=== PATIENT | male | born 1960 | race Caucasian/White ===

== ENCOUNTER → 2016-07-15 | Outpatient (CLI) | payer OTHER, MEDICARE ==
[~2016-07-15] MED LIST: ASPIRIN LO-DOSE81 MG PO; ATIVAN 1 MG1 MG PO; DEPO TESTOS200 MG/ML IM; FISH OIL 1,0001 EACH PO; LYRICA 75MG CAP75 MG PO; MEDROL4 M1 PO; MS CONTIN30 MG PO; OXYCODONE HCL20 MG PO; OXYCONTIN40 MG PO; PRILOSEC20 MG PO; ROXICODONE 5MG (5 MG PO; WELLBUTRIN SR150 MG PO; ZANAFLEX4 MG PO
== END | disposition disaster alternative care site (69) ==
LOC: GRAD 14:00
DX: M54.5 Low back pain (principal); M51.36 Other intervertebral disc degeneration, lumbar region; M51.34 Other intervertebral disc degeneration, thoracic region; M47.814 Spondylosis without myelopathy or radiculopathy, thoracic region; M41.9 Scoliosis, unspecified

== ENCOUNTER 2016-07-25 13:07 | Emergency (ER) | payer OTHER, MEDICARE ==
--- NOTE | ~2016-07-25 | ER ---
[facility] AGE: 56 Y [address] ROOM: [place] [address] LOCATION: [facility] ADMIT DATE: 07/25/2016 ER/Outpatient Report DISCHARGE DATE: 07/25/2016 FAMILY PHYSICIAN: Karthik Yu MD ATTENDING PHYSICIAN: Blake Jiménez Time of Patient Arrival: 1307 hours. Time of Patient Evaluation: 1319 hours. CHIEF COMPLAINT: Back pain. HISTORY OF PRESENT ILLNESS: This is a 56-year-old male, who presents to the ER with acute on chronic back pain that started an hour prior to arrival. The patient states he has no new recent injury. He denies any bowel or bladder problems. No recent fever or chills. He states he does have surgery scheduled with Dr. Herrera on August 19. The patient states that he has been taking his morphine as scheduled, but he has not been taking his Percocet and he did not take any of that today. He states that usually they just give him a few shots and he can go home. He states he definitely does not want to be hospitalized for this pain today. ALLERGIES: NO KNOWN ALLERGIES. MEDICATIONS: Please see medication list in nurse's notes. PAST MEDICAL HISTORY: 1. Chronic back pain. 2. CT. 3. Cardiac stents x2. 4. Back surgery x2. SOCIAL HISTORY: Drinks alcohol occasionally. REVIEW OF SYSTEMS: A 10-point review of systems was completed and was negative with the exception of those discussed in the HPI. PHYSICAL EXAMINATION: VITAL SIGNS: Height 5 feet 7 inches stated, weight 103.8 kg taken, blood pressure is 147/78, pulse 78, respirations 18, temperature 97.7 degrees tympanically, and saturation is 97% on room air. Jessica Coma Score is 15. [facility] AGE[facility] 56 Y [address] ROOM: [place] [address] LOCATION: [facility] ADMIT DATE: 07/25/2016 ER/Outpatient Report DISCHARGE DATE: 07/25/2016 FAMILY PHYSICIAN: Karthik Yu MD ATTENDING PHYSICIAN: Blake Jiménez GENERAL: An alert, tearful 56-year-old in mild distress. HEENT: Head; normocephalic. Eyes; pupils are equal and reactive to light. Does display moist mucous membranes. LUNGS: Clear to auscultation bilaterally. No wheezes or crackles. Normal respiratory effort. HEART: Regular rate and rhythm. No lifts, thrills, or murmurs. ABDOMEN: Soft, it is nontender. He has good bowel sounds throughout. No masses are palpated. MUSCULOSKELETAL: He does have tenderness across his entire lumbar spine. He does have positive straight leg test bilaterally to his lower extremities secondary to pain. The patient has good pulses bilaterally to the lower extremities. LABORATORY DATA AND IMAGING STUDIES: Labs and X-rays: None were done. IMPRESSION: Acute on chronic back pain. ASSESSMENT AND PLAN: I did review the patient's chart. I will be giving patient Dilaudid 1 mg IM, Valium 10 mg IM, and Toradol 60 mg IM here in the ER. He did tolerate this well. He would like to go home at this time. I advised him to ice, rest, monitor symptoms, and follow up with his primary care physician or Dr. Herrera for followup care. The patient understands and agrees with care. CANDE GARIBAY PA-C FOR MD ZENOBIA COOPER/shashi /[id number] d: 07/25/16 2305 t: 08/10/16 0802, OUTPATIENT REPORT
== END 2016-07-25 13:51 | disposition disaster alternative care site (69) ==
LOC: GMED 13:07
DX: G89.29 Other chronic pain (principal); M54.5 Low back pain; I25.2 Old myocardial infarction; Z98.61 Coronary angioplasty status; Z98.890 Other specified postprocedural states
CPT/HCPCS: J1170; J1885; J3360

== ENCOUNTER 2016-10-31 13:54 | Emergency (ER) | payer MEDICARE ==
--- NOTE | ~2016-10-31 | ER ---
PATIENT'S NAME: [facility] AGE: 56 Y [address] ROOM: [place] [address] LOCATION: [facility] ADMIT DATE: 10/31/2016 ER/Outpatient Report DISCHARGE DATE: 10/31/2016 FAMILY PHYSICIAN: Karthik Yu MD ATTENDING PHYSICIAN: Jack Conde Time of Arrival: 1358 hours. Time of Exam: 1415 hours. CHIEF COMPLAINT: Pain and redness, lower extremities. HISTORY OF PRESENT ILLNESS: The patient is a 56-year-old male who presents to the emergency department today with a chief complaint of pain and redness to his lower extremities. He reports this started about 12 hours prior to arrival. He reports sharp pain, burning type pain, it is currently 8/10 in severity. Denies any fevers or chills. No nausea or vomiting. No diarrhea or constipation. He reports that this started to feel like they were on fire last night. He denies any new exposures. No new detergents. No other exposures other than the patient has been in a swimming pool that is untreated. No chest pain, no shortness of breath. PAST MEDICAL HISTORY: Coronary artery disease, depression, anxiety, and chronic pain. PAST SURGICAL HISTORY: Back surgery, stents, finger, hand, nose, and tumor. SOCIAL HISTORY: The patient denies any tobacco use. Reports occasional alcohol use. Denies any illicit drug use. ALLERGIES: NO KNOWN DRUG ALLERGIES. MEDICATIONS: Please see list. PRIMARY CARE DOCTOR: Karthik Yu MD. ORTHOPEDICS: Junior Herrera MD. PATIENT'S NAME: [facility] AGE: 56 Y [address] ROOM: [place] [address] LOCATION: [facility] ADMIT DATE: 10/31/2016 ER/Outpatient Report DISCHARGE DATE: 10/31/2016 FAMILY PHYSICIAN: Karthik Yu MD ATTENDING PHYSICIAN: Jack Conde PAIN MANAGEMENT: Manolo Frost MD. REVIEW OF SYSTEMS: All systems are reviewed by myself and are negative with the exception of those discussed in HPI and past medical history. PHYSICAL EXAMINATION: VITAL SIGNS: Weight 103.1 kg. Blood pressure 176/86, pulse 76, respiratory rate 18, temperature 96.3, and oxygen saturation 96% on room air. GENERAL: The patient is a 56-year-old male who appears the stated age, in no acute distress. HEENT: Head: Normocephalic, atraumatic. Pupils are equal, round, and reactive to light. Oropharynx is clear. NECK: Supple. There is no nuchal rigidity. CARDIOVASCULAR: Regular rate and rhythm. No murmurs, rubs, or gallops. LUNGS: Clear to auscultation bilaterally. No wheezes, rales, or rhonchi. ABDOMEN: Soft, nontender, and nondistended. No rebound, rigidity, or guarding. MUSCULOSKELETAL: The patient is in a TLSO brace. SKIN: The patient does have some mild erythema in the lower extremities. He does have 1+ pretibial edema in bilateral lower extremities. They are equal bilaterally with tenderness to palpation. LAB AND X-RAYS: CBC is normal. CMP is normal. IMPRESSION: 1. Bilateral lower extremity rash and swelling. 2. Initial visit. ED COURSE: The patient was brought back to the examination room. Seen and evaluated by myself. Laboratory analysis and imaging are obtained as described above. An IV is established. The patient is given Solu-Medrol 125 mg IV, Pepcid 20 mg IV, as well as Benadryl 50 mg IV. He is given 4 mg of morphine IV. I have discussed the results with the patient and his who is at bedside. I see no evidence of petechiae or purpuric lesions. There is no evidence of lesions on the palms or soles. I do feel the patient is safe for outpatient evaluation at this time. I have written a prescription for prednisone for home and also cover for potential cellulitis as the patient does have an abrasion noted on bilateral lower extremities, worse on the left. I have also recommended [id number] Benadryl. I have discussed return to care instructions including worsening symptoms or any other concerns to return to the emergency department as soon as possible. I have asked he follows up with PATIENT'S NAME: TER[facility]A YIP [facility] AGE: 56 Y [address] ROOM: [place] [address] LOCATION: [facility] ADMIT DATE: 10/31/2016 ER/Outpatient Report DISCHARGE DATE: 10/31/2016 FAMILY PHYSICIAN: Karthik Yu MD ATTENDING PHYSICIAN: Jack Conde Dr. in 2-3 days for re-evaluation. The patient is agreeable, is agreeable, and they are without further questions at this time. DISPOSITION: The patient is discharged home in good condition. DO DARLENE CHATTERJEE/modl /[id number] d: 10/31/16 2142 t: 11/10/16 0650, OUTPATIENT REPORT
[2016-10-31 14:56] LABS: BASOPHIL # 0.1 K/uL (0.0-0.2); BASOPHIL % 0.9 %; EOSINOPHIL # 0.2 K/uL (0.0-0.5); EOSINOPHIL % 3.7 %; HEMATOCRIT 40.5 % (37.0-53.0); HEMOGLOBIN 13.3 g/dL (12.0-17.0); IMMATURE GRANULOCYTE % 0.4 %; LYMPHOCYTE # 1.9 K/uL (0.8-4.0); LYMPHOCYTE % 35.2 %; MCH 29.4 pg (27.0-34.0); MCHC 32.8 gm/dL (32.0-36.5); MCV 89.4 fl (83.0-98.0); MONOCYTE # 0.5 K/uL (0.0-1.0); MONOCYTE % 9.6 %; NEUTROPHIL # (ANC) 2.7 K/uL (1.4-9.0); NEUTROPHIL % 50.2 %; NRBC % 0 /100WBC (0-0.00); PLATELET COUNT 203 K/uL (150-450); RBC 4.53 M/uL (4.00-6.00); RDW-CV 14.1 % (11.9-14.6); WBC 5.4 K/uL (4.0-11.0)
[2016-10-31 15:12] LABS: ALBUMIN 3.4 gm/dL (3.5-5.0); ALK PHOS 117 IU/L (33-138); ALT 31 IU/L (12-78); ANION GAP 9.7 (10.0-19.0); AST 28 IU/L (10-40); BLOOD UREA NITROGEN 7 mg/dL (6-24); CALCIUM 8.2 mg/dL (8.5-10.5); CHLORIDE 109 mMol/L (96-110); CO2 26 mMol/L (22-32); CREATININE 0.6 mg/dL (0.6-1.3); ESTIMATED GFR (MDRD EQUATION) > 60; POTASSIUM 3.7 mMol/L (3.7-5.1); SODIUM 141 mMol/L (135-145); TOTAL BILIRUBIN 0.3 mg/dL (0.0-1.5); TOTAL PROTEIN 7.3 g/dL (6.0-8.4)
== END 2016-10-31 16:45 | disposition disaster alternative care site (69) ==
LOC: GMED 13:54
PROVIDERS: Emergency Medicine
DX: R22.43 Localized swelling, mass and lump, lower limb, bilateral (principal); R21 Rash and other nonspecific skin eruption; I25.10 Atherosclerotic heart disease of native coronary artery without angina pectoris; F41.9 Anxiety disorder, unspecified; F32.9 Major depressive disorder, single episode, unspecified; Z79.82 Long term (current) use of aspirin; Z79.899 Other long term (current) drug therapy; Z98.890 Other specified postprocedural states
CPT/HCPCS: J1200; J2270; J2930; J7030

== ENCOUNTER 2016-12-25 19:35 | Emergency (ER) | payer OTHER, MEDICARE ==
--- NOTE | ~2016-12-25 | ER ---
PATIENT'S NAME: TERESA YIP [facility] AGE: 56 Y [address] ROOM: [place] [address] LOCATION: [facility] ADMIT DATE: 12/25/2016 ER/Outpatient Report DISCHARGE DATE: 12/25/2016 FAMILY PHYSICIAN: Physician, Unknown ATTENDING PHYSICIAN: Earl Montenegro Admission date and time documented in the medical record. I saw the patient at 1945 hours. CHIEF COMPLAINT: Low back pain and groin pain. HISTORY OF PRESENT ILLNESS: The patient is a 56-year-old male who was out in his garage this evening. The patient sneezed. He had a pop in his back and had instant severe pain, 10/10. No radiation of the pain down his legs. The pain kind of was in his lower back and groin areas. Did not go to the floor. Did not fall. No other trauma. Does have a long history of acute on chronic low back problems. He had lumbar surgery I believe in the past couple months. No urinary frequency, urgency, or dysuria. No chest pain or shortness of breath. No headache, eyes, ears, nose, throat, or neck pain. No lightheadedness, dizziness, syncope, or near syncope. No recent coughs, colds, flus, fever, chills, or sweats. No skin eruptions or rash. Does have a history of anxiety, depression, and suicidal ideation. No neuro changes. No endocrine problems. HOME MEDICATIONS: See attached medication list. ALLERGIES: NONE. SOCIAL HISTORY: Nonsmoker. Occasional intake of alcohol. SIGNIFICANT PAST MEDICAL HISTORY: Chronic back pain, remote tobacco abuse, atherosclerotic ischemic heart disease with coronary artery disease, gastroesophageal reflux, anxiety, depression, suicidal ideation, hypertension, exogenous obesity, and dyslipidemia. OPERATIONS: Right parotidectomy, cardiac catheterization with PTCA and stenting, lumbar diskectomies with fusion, tonsillectomy, right hand surgery, and multiple epidural steroid injections. PATIENT'S NAME: ETRESA YIP [facility] AGE: 56 Y [address] ROOM: [place] [address] LOCATION: [facility] ADMIT DATE: 12/25/2016 ER/Outpatient Report DISCHARGE DATE: 12/25/2016 FAMILY PHYSICIAN: Physician, Unknown ATTENDING PHYSICIAN: Earl Montenegro REVIEW OF SYSTEMS: All systems reviewed by me are negative with the exception of those discussed in the history of the present illness. PHYSICAL EXAMINATION: VITAL SIGNS: Temperature 97 tympanic, respirations 20, blood pressure 191/92, and O2 saturation on room air is 100%. HEAD: Normocephalic. EYES, EARS, NOSE, THROAT: Clear. NECK: Negative. LUNGS: Clear. HEART: Regular. ABDOMEN: Soft. Nontender. GENITALIA: Normal external male genitalia. Testes are descended bilaterally. No masses. No enlargement. No inguinal herniation on digital exam. EXTREMITIES: No peripheral edema, cyanosis, or deformity. NEUROVASCULAR: Intact. SKIN: Clear. No skin eruptions or rash. IMAGING: CT scan of the lumbar spine showed postoperative fusion changes. No disruption of the screws or metal hardware. No acute fracture or subluxation. No acute changes. CT scan of the bony pelvis showed no acute fracture, degenerative changes, or abnormalities. All CT scans read by Radiology, see dictated transcribed report. LABORATORY DATA: White count is 5600, 56 segs, 34 lymphs, 8 monos, 2 eos, 1 baso, hemoglobin is 14.9, hematocrit 42.1, and platelet count is 230,000. Sed rate is normal at 17. CMS was normal except for a slightly low potassium of 3.6. CRP was 1. EMERGENCY DEPARTMENT COURSE: I did give the patient IV Dilaudid 1 mg plus Toradol 60 mg IM and Valium 10 mg IM. IMPRESSION: Low back pain with groin pain following hard sneeze, etiology undetermined at this time. There is no evidence of any bony changes of the lumbosacral spine or pelvis. There is no abnormalities on his laboratory studies, which included CBC, CMS, sedimentation rate, and urinalysis. There are no abnormalities on physical exam. The patient does have a long history of acute on chronic low back pain. PLAN: The patient dismissed home. Observation. Activity as tolerated. Continue PATIENT'S NAME: TERESA YIP [facility] AGE: 56 Y [address] ROOM: [place], [place] [address] LOCATION: ED ADMIT DATE: 12/25/2016 ER/Outpatient Report DISCHARGE DATE: 12/25/2016 FAMILY PHYSICIAN: Physician, Unknown ATTENDING PHYSICIAN: Earl Montenegro present home medications and care. Ice, heat, or combination of ice heat to sore areas intermittently as needed. Follow up with his personal physician as needed or as scheduled. Discussion ensued with the patient concerning my findings and recommendations, he understands. MD MARIA DEL CARMEN LOYA/shashi /[id number] d: 12/25/16 2346 t: 12/26/16 0338, OUTPATIENT REPORT
[2016-12-25 20:18] LABS: BASOPHIL % 0.7 %; EOSINOPHIL # 0.1 K/uL (0.0-0.5); EOSINOPHIL % 1.6 %; HEMATOCRIT 42.1 % (37.0-53.0); HEMOGLOBIN 14.9 g/dL (12.0-17.0); IMMATURE GRANULOCYTE % 0.2 %; LYMPHOCYTE # 1.9 K/uL (0.8-4.0); LYMPHOCYTE % 33.9 %; MCH 29.9 pg (27.0-34.0); MCHC 35.4 gm/dL (32.0-36.5); MCV 84.4 fl (83.0-98.0); MONOCYTE # 0.4 K/uL (0.0-1.0); MONOCYTE % 7.5 %; MPV 10.9 fl (9.4-12.4); NEUTROPHIL # (ANC) 3.2 K/uL (1.4-9.0); NEUTROPHIL % 56.1 %; NRBC % 0 /100WBC (0-0.00); PLATELET COUNT 230 K/uL (150-450); RBC 4.99 M/uL (4.00-6.00); RDW-CV 13.8 % (11.9-14.6); WBC 5.6 K/uL (4.0-11.0)
[2016-12-25 20:37] LABS: ALBUMIN 3.5 gm/dL (3.5-5.0); ALK PHOS 100 IU/L (33-138); ALT 35 IU/L (12-78); ANION GAP 10.6 (10.0-19.0); AST 31 IU/L (10-40); BLOOD UREA NITROGEN 5 mg/dL (6-24); CALCIUM 8.6 mg/dL (8.5-10.5); CHLORIDE 107 mMol/L (96-110); CO2 25 mMol/L (22-32); CREATININE 0.8 mg/dL (0.6-1.3); POTASSIUM 3.6 mMol/L (3.7-5.1); SODIUM 139 mMol/L (135-145); TOTAL BILIRUBIN 0.3 mg/dL (0.0-1.5); TOTAL PROTEIN 7.5 g/dL (6.0-8.4)
[2016-12-25 21:13] LABS: BILIRUBIN URINE NEGATIVE (NEGATIVE); BLOOD URINE NEGATIVE /UL (NEGATIVE); COLOR URINE YELLOW (YELLOW); GLUCOSE URINE NEGATIVE (NEGATIVE); KETONE URINE NEGATIVE (NEGATIVE); LEUKOCYTES URINE 25 /UL (NEGATIVE); NITRITE URINE NEGATIVE (NEGATIVE); PROTEIN URINE NEGATIVE (NEGATIVE); TURBIDITY URINE CLEAR (CLEAR); UROBILINOGEN URINE NORMAL (NORMAL)
[2016-12-25 21:25] LABS: BACTERIA URINE NEGATIVE (NEGATIVE); RBC URINE NEGATIVE #/HPF (NEGATIVE); WBC URINE 0-2 #/HPF (NEGATIVE)
== END 2016-12-25 21:55 | disposition disaster alternative care site (69) ==
LOC: GMED 19:35
PROVIDERS: Emergency Medicine
DX: M54.5 Low back pain (principal); R10.30 Lower abdominal pain, unspecified; I10 Essential (primary) hypertension; K21.9 Gastro-esophageal reflux disease without esophagitis; E66.09 Other obesity due to excess calories; F41.9 Anxiety disorder, unspecified; F32.9 Major depressive disorder, single episode, unspecified; E78.5 Hyperlipidemia, unspecified; I25.10 Atherosclerotic heart disease of native coronary artery without angina pectoris; Z79.82 Long term (current) use of aspirin; Z79.891 Long term (current) use of opiate analgesic; Z79.899 Other long term (current) drug therapy; Z90.89 Acquired absence of other organs; Z95.828 Presence of other vascular implants and grafts; Z98.1 Arthrodesis status; Z98.890 Other specified postprocedural states
CPT/HCPCS: J1170; J1885; J3360

== ENCOUNTER → 2016-12-25 | Outpatient (CLI) | payer OTHER, MEDICARE | END | disposition disaster alternative care site (69) | LOC: GAMB 19:18 | DX: M54.9 Dorsalgia, unspecified (principal); M54.5 Low back pain; M79.662 Pain in left lower leg; M79.661 Pain in right lower leg; R10.30 Lower abdominal pain, unspecified | CPT/HCPCS: A0425; A0427; J3010 ==